=== PATIENT | female | born 1975 ===

== ENCOUNTER 2021-07-11 17:29 | Emergency (ER) | payer MEDICAID ==
[~2021-07-11] VITALS: Ht 152.4 cm; Wt 63.5 kg
[2021-07-11 17:42] VITALS: BP 147/75
[2021-07-11] MEDS ORDERED: IBUPROFEN 800 MG TAB PO ONE (20:15)
[2021-07-11] MEDS ORDERED: ACETAMINOPHEN 500 MG TAB PO ONE (20:15)
[2021-07-11] MEDS ORDERED: LET TOPICAL SOLN 5 ML TOP ONE (20:30)
== END 2021-07-11 21:45 | disposition home or self-care (01) ==
LOC: ER 17:29
DX: S61.212A Laceration without foreign body of right middle finger without damage to nail, initial encounter (principal); W26.8XXA Contact with other sharp object(s), not elsewhere classified, initial encounter; Y93.89 Activity, other specified; Y92.89 Other specified places as the place of occurrence of the external cause; Y99.8 Other external cause status
CPT/HCPCS: 12001; 99283; J3490

== ENCOUNTER 2021-08-04 09:18 | Emergency (ER) | payer MEDICAID ==
[~2021-08-04] VITALS: Ht 152.4 cm; Wt 68.0 kg
[2021-08-04 09:25] VITALS: BP 141/88
[2021-08-04] MEDS ORDERED: KETOROLAC TROMETH 60MG/2ML VIAL IM ONE (10:15)
== END 2021-08-04 11:52 | disposition home or self-care (01) ==
LOC: ER 09:18
DX: S16.1XXA Strain of muscle, fascia and tendon at neck level, initial encounter (principal); M50.323 Other cervical disc degeneration at C6-C7 level; M54.12 Radiculopathy, cervical region; Z98.890 Other specified postprocedural states; X58.XXXA Exposure to other specified factors, initial encounter; Y93.89 Activity, other specified; Y92.89 Other specified places as the place of occurrence of the external cause; Y99.8 Other external cause status
CPT/HCPCS: 72040; 93005; 96372; 99283; J1885